=== PATIENT | female | born 1980 | race Caucasian/White ===

== ENCOUNTER 2022-04-18 09:39 | Emergency (ER) | payer MEDICAID, OTHER ==
--- NOTE | 2022-04-18 10:16 | ED Physician Documentation ---
PD HPI HEADACHE - Stated complaint Stated Complaint: H/A, LUMP - Chief complaint Chief Complaint: Neuro - History obtained from History obtained from: Patient - History of Present Illness Timing - onset: How many months ago (1) Timing - onset during: Light activity Timing - duration: Months (1) Timing - details: Gradual onset, Still present, Waxing and waning. No: Intermittant Location: Left Quality: Throbbing, Aching Associated symptoms: Other (the past 2-3 days has had new tender lump behind left ear.). No: Fever, Stiff neck, Nausea, Vomiting, Vision changes Improved by: Meds (she was Rx steroids for a week and was moderately improved with that.). No: Rest, Dark room Worsened by: No: Light, Noise Contributing factors: No: Recent illness Similar symptoms before: Has not had sx before Recently seen: Emergency Dept (3 weeks ago for the headache.) Review of Systems Constitutional: denies: Fever, Chills Ears: denies: Ear pain, Drainage/discharge Nose: denies: Rhinorrhea / runny nose, Congestion Throat: denies: Sore throat Respiratory: denies: Cough GI: denies: Nausea, Vomiting, Diarrhea Skin: denies: Rash Endocrine: denies: Weight loss, Weight gain PD PAST MEDICAL HISTORY - Past Medical History Cardiovascular: None Respiratory: None Neuro: None Endocrine/Autoimmune: None - Present Medications Home Medications: Ambulatory Orders Medication Instructions Recorded Confirmed Nortriptyline [Pamelor] 10 mg PO QPM 30 Days #30 cap 04/18/22 cephALEXin [Keflex] 500 mg PO TID #20 cap 04/18/22 dexAMETHasone [Decadron] 4 mg PO DAILY #7 tablet 04/18/22 oxyCODONE [Roxicodone] 5 mg PO Q6H PRN #15 tablet 04/18/22 - Allergies Allergies/Adverse Reactions: Allergies Allergy/AdvReac Type Severity Reaction Status Date / Time No Known Drug Allergies Allergy Verified 04/18/22 09:52 PD ED PE NORMAL - Vitals Vital signs reviewed: Yes - General General: Alert and oriented X 3, No acute distress (does appear somewhat uncomfortable due to headache. Interacts well. ), Well developed/nourished - HEENT HEENT: Ears normal, Moist mucous membranes, Pharynx benign, Dentition benign, Other (left post auricular area with 1 cm tender lump that is moveable under skin c/w lymph node. No redness nor sores. ) - Neck Neck: Supple, no meningeal sign - Cardiac Cardiac: RRR, No murmur - Respiratory Respiratory: Clear bilaterally - Derm Derm: Normal color, Warm and dry - Neuro Neuro: Alert and oriented X 3, No motor deficit, Normal speech Results - Vitals Vitals: Vital Signs - 24 hr 04/18/22 04/18/22 04/18/22 09:47 12:56 14:00 Temperature 36.8 C 36.8 C Heart Rate 75 54 L 54 L Respiratory 18 17 17 Rate Blood Pressure 151/93 H 153/96 H 153/96 H O2 Saturation 98 98 98 04/18/22 14:09 Temperature 36.8 C Heart Rate 54 L Respiratory 17 Rate Blood Pressure 153/96 H O2 Saturation 98 Oxygen O2 Source Room air - Rads (name of study) head CT Radiology: Prelim report reviewed (no acute process), See rad report PD MEDICAL DECISION MAKING - ED course Complexity details: reviewed results (head CT), considered differential (left sided headache for a month, fairly consistent. now recent left post auricular node. Don't think is directly related. Can treat isolated adenitis with abx. The persistent daily headache has normal CT. Did not do labs. Can treat with steroids, pain meds, and can start low dose nortryptylline.), d/w patient Departure - Departure Disposition: 01 Home, Self Care Clinical Impression: Left-sided headache, New persistent daily headache, Postauricular adenopathy Condition: Stable Record reviewed to determine appropriate education?: Yes Instructions: ED Cervical Adenitis Abx Tx, ED Cephalgia Unspecified Prescriptions: dexAMETHasone [Decadron] 4 mg PO DAILY #7 tablet cephALEXin [Keflex] 500 mg PO TID #20 cap Nortriptyline [Pamelor] 10 mg PO QPM 30 Days #30 cap oxyCODONE [Roxicodone] 5 mg PO Q6H PRN #15 tablet PRN Reason: Pain Comments: Your CT scan is normal without any signs of acute abnormalities. Follow-up with your primary care back home. Consideration could be other imaging modalities as the CT scan does not fully exclude all structural pathology (such as MS for example). Otherwise it sounds more like functional headache with persistent daily headache. This is in the similar category 2 migraines but of a different character. The lymph node behind the left ear would be treated with antibiotic presuming some bacterial infection in the region. However this is not likely apparent to be causing your headache for the past month. I would take cephalexin antibiotic 3 times daily as directed for the adenitis (inflamed lymph node). Also Decadron steroid daily for the next week to help with the persistent headache. Add Tylenol 4 times daily regularly for headache and to that oxycodone every 4-6 hours if needed for worse headache. Given the persistent severe headache over the last month, I would also suggest starting nortriptyline 10 mg very low-dose nightly as an initial treatment for persistent daily headache and see how you do with that. Follow-up with your primary care at home for further evaluation and treatments. I transmitted prescription to [facility] pharmacy in [place]. I am prescribing a short course of narcotic pain medication for you. These are potentially dangerous and addictive medications that should be used carefully. These medications may constipate you. Take an yqgz-[id number] stool softener such as docusate twice daily with plenty of water while taking these medications. If you go 24 hours without a bowel movement, take [id number] MiraLAX, per package instructions. Do not drink or drive while taking these medications. If you received narcotic or sedating medications while in the emergency department do not drive for 24 hours. Store this medication in a safe, secure p lace and out of reach of children. It is a violation of federal law to give or sell this medication to another person or to use in a manner other than prescribed. The ED will not refill narcotic prescriptions, including prescriptions lost or stolen. You can dispose of unwanted medications at the [facility]'s office or at several pharmacies such as [facility]. Discharge Date/Time: 04/18/22 14:09
[2022-04-18] MEDS ORDERED: CHERRY SYRUP 10 ML UDC PO ONE (10:40)
[2022-04-18] MEDS ORDERED: DEXAMETHASONE 10 MG/ML VIAL PO STA (10:40)
[2022-04-18] MEDS ORDERED: HYDROcod/ACETAM 5/325 MG TABLET PO STA (10:40)
--- NOTE | 2022-04-18 12:56 | CT Report ---
PROCEDURE: HEAD WO INDICATIONS: left headache x 1 month TECHNIQUE: Noncontrast 4.5 mm thick angled axial sections acquired from the foramen magnum to the vertex. For r adiation dose reduction, the following was used: automated exposure control, adjustment of mA and/or kV according to patient size. COMPARISON: None. FINDINGS: Image quality: Excellent. CSF spaces: Basal cisterns are patent. No extra-axial fluid collections. Ventricles are normal in size and shape. Brain: No midline shift. No intracranial masses or hemorrhage. Martinez-white matter interface is norm al. A low-lying cerebellar tonsils are seen with slight crowding of the foramen magnum. The inferior margin of the cerebellar tonsils is not definitely seen and Chiari 1 malformation is not excluded. Skull and face: Calvarium and visualized facial bones are intact, without suspicious lesions. Right frontal scalp calcification may be related to a skin lesion such as a sebaceous cyst. Sinuses: Visualized sinuses and mastoids are clear. IMPRESSION: 1.No acute intracranial abnormality. 2.Low-lying cerebellar tonsils are seen which extend below the yvnpi-ju-sada of this exam. Chiari I m alformation is not excluded. Reviewed by: Dwayne Carter MD on 04/18/2022 12:54 PM PDT Approved by: Dwayne Carter MD on 04/18/2022 12:54 PM PDT Station ID: [id number]
[2022-04-18 12:57] VITALS: BP 153/96
[2022-04-18] MEDS ORDERED: cephALEXin 250 MG CAPSULE PO STA (13:45)
== END 2022-04-18 14:09 | disposition home or self-care (01) ==
LOC: ED 09:39
DX: R51.9 Headache, unspecified (principal); R59.0 Localized enlarged lymph nodes
CPT/HCPCS: 70450; 99284; A9270